=== PATIENT | male | born 1965 | race African-American/Black ===

== ENCOUNTER 2021-10-19 13:04 | Inpatient (IN) | payer OTHER ==
[2021-10-19] MEDS ORDERED: ACETAMINOPHEN 325 MG TABLET (FP) PO PRN ×2 (15:18)
[2021-10-19] MEDS ORDERED: BISMUTH SUBSALICYLATE 524 MG/30 ML PO PRN (15:18)
[2021-10-19] MEDS ORDERED: NICOTINE 10 MG CARTRIDGE (INHALER) IH PRN (15:18)
[2021-10-19] MEDS ORDERED: MAGNESIUM CITRATE 300 ML BOTTLE PO PRN (15:18)
[2021-10-19] MEDS ORDERED: IBUPROFEN 400 MG TABLET (FP) PO PRN (15:18)
[2021-10-19] MEDS ORDERED: METHOCARBAMOL 500 MG TABLET PO PRN (15:18)
[2021-10-19] MEDS ORDERED: LORazepam 1 MG TABLET PO PRN (15:18)
[2021-10-19] MEDS ORDERED: ONDANSETRON *ODT* 4 MG TABLET SL PRN (15:18)
[2021-10-19] MEDS ORDERED: MAG HYDROX/AL HYDROX/SIMETH 30 ML UNIT-DOSE CUP PO PRN (15:18)
[2021-10-19] MEDS ORDERED: MENTHOL/PHENOL 1 EACH UD MM PRN (15:18)
[2021-10-19] MEDS ORDERED: LOPERAMIDE HCL 2 MG CAPSULE PO PRN (15:18)
[2021-10-19] MEDS ORDERED: MAGNESIUM HYDROX 2400MG/30ML ORAL SUSPENSION 30 ML CUP PO PRN (15:18)
[2021-10-19 16:58] VITALS: BMI 16.9
[2021-10-19] MEDS: hydrOXYzine PAMOATE 25 MG CAPSULE (FP) PO SCH ×2 (20:41→22:22)
[2021-10-19] MEDS: PRENATAL VITAMINS W/ FOLIC ACID TABLET (FP) PO SCH (20:41)
[2021-10-19] MEDS ORDERED: PHENobarbital 30 MG TABLET PO SCH (22:00)
[2021-10-19] MEDS: THIAMINE HCL 100 MG TABLET (FP) PO SCH (22:22)
[2021-10-19] MEDS: MELATONIN 5 MG TABLETS PO SCH (22:22)
[2021-10-19] MEDS: LORazepam 2 MG TABLET PO SCH (22:22)
[2021-10-20] MEDS: LORazepam 2 MG TABLET PO SCH ×4 (05:28→22:01)
[2021-10-20] MEDS: hydrOXYzine PAMOATE 25 MG CAPSULE (FP) PO SCH ×5 (05:28→22:02)
[2021-10-20] MEDS: PRENATAL VITAMINS W/ FOLIC ACID TABLET (FP) PO SCH (10:16)
[2021-10-20 11:13] LABS: HEMATOCRIT 35.1 % (35.4-49); HEMOGLOBIN 11.7 GM/dL (11.7-16.9); MCH 32.4 pg (25.7-33.7); MCHC 33.5 g/dl (32.0-35.9); MEAN PLT VOLUME 7.9 fl (7.5-11.1); PLATELET COUNT 153 10^3/uL (134-434); RBC 3.62 M/mm3 (4.00-5.60); RDW 15.3 % (11.9-15.9); WHITE BLOOD COUNT 5.1 K/mm3 (4.0-10.0)
[2021-10-20 11:25] LABS: ALBUMIN 3.5 g/dl (3.4-5.0); BLOOD UREA NITROGEN 13.3 mg/dL (7-18); CALCIUM 9.3 mg/dL (8.5-10.1)
[2021-10-20 11:28] LABS: CREATININE 0.6 mg/dL (0.55-1.3)
[2021-10-20 11:29] LABS: BILIRUBIN,TOTAL 0.9 mg/dL (0.2-1)
[2021-10-20] MEDS: MELATONIN 5 MG TABLETS PO SCH (22:01)
[2021-10-20] MEDS: THIAMINE HCL 100 MG TABLET (FP) PO SCH (22:01)
[2021-10-21] MEDS: hydrOXYzine PAMOATE 25 MG CAPSULE (FP) PO SCH ×5 (05:13→22:13)
[2021-10-21] MEDS: LORazepam 1 MG TABLET PO SCH ×4 (05:13→22:12)
[2021-10-21] MEDS: PRENATAL VITAMINS W/ FOLIC ACID TABLET (FP) PO SCH (10:25)
[2021-10-21 10:51] LABS: INR 1.01 (0.83-1.09); PROTHROMBIN TIME (PATIENT) 11.6 SEC (9.7-13.0)
[2021-10-21 10:51] LABS: ALBUMIN 3.2 g/dl (3.4-5.0); CALCIUM 8.5 mg/dL (8.5-10.1)
[2021-10-21 10:56] LABS: BILIRUBIN,TOTAL 0.8 mg/dL (0.2-1)
[2021-10-21 10:58] LABS: CREATININE 0.6 mg/dL (0.55-1.3); TOT PROT 5.5 g/dl (6.4-8.2)
[2021-10-21] MEDS: LACTULOSE 20 GM/30 ML UDC (FOR ORAL USE ONLY) PO SCH ×3 (14:25→22:12)
[2021-10-21] MEDS: THIAMINE HCL 100 MG TABLET (FP) PO SCH (22:12)
[2021-10-21] MEDS: MELATONIN 5 MG TABLETS PO SCH (22:12)
[2021-10-22] MEDS ORDERED: LORazepam 0.5 MG TABLET PO PRN
[2021-10-22] MEDS: hydrOXYzine PAMOATE 25 MG CAPSULE (FP) PO SCH ×5 (05:56→22:08)
[2021-10-22] MEDS: LORazepam 0.5 MG TABLET PO SCH ×4 (05:56→22:07)
[2021-10-22] MEDS: PRENATAL VITAMINS W/ FOLIC ACID TABLET (FP) PO SCH (10:21)
[2021-10-22] MEDS: LACTULOSE 20 GM/30 ML UDC (FOR ORAL USE ONLY) PO SCH ×4 (10:22→22:07)
[2021-10-22] MEDS: PHENobarbital 30 MG TABLET PO SCH (22:07)
[2021-10-22] MEDS: MELATONIN 5 MG TABLETS PO SCH (22:08)
[2021-10-22] MEDS: THIAMINE HCL 100 MG TABLET (FP) PO SCH (22:08)
[2021-10-23] MEDS ORDERED: LORazepam 0.5 MG TABLET PO ONE (05:00)
[2021-10-23] MEDS: hydrOXYzine PAMOATE 25 MG CAPSULE (FP) PO SCH ×2 (05:34→10:24)
[2021-10-23 09:14] VITALS: BP 91/66; PULSE 102; TEMP 96.9
[2021-10-23] MEDS: PHENobarbital 30 MG TABLET PO SCH (10:24)
[2021-10-23] MEDS: LACTULOSE 20 GM/30 ML UDC (FOR ORAL USE ONLY) PO SCH (10:24)
[2021-10-23] MEDS: PRENATAL VITAMINS W/ FOLIC ACID TABLET (FP) PO SCH (10:25)
== END 2021-10-23 11:40 | disposition home or self-care (01) | DRG 775 ==
LOC: EDBD 13:04 → YASAS 13:04 → Y3N 16:41
PROVIDERS: ADMIT Allergy & Immunology; ATTEND Allergy & Immunology
PROC: HZ2ZZZZ Detoxification Services for Substance Abuse Treatment (ICD-10-PCS; principal; 2021-10-19)
DX: F10.230 Alcohol dependence with withdrawal, uncomplicated (principal); F17.210 Nicotine dependence, cigarettes, uncomplicated; R62.7 Adult failure to thrive; Z68.1 Body mass index [BMI] 19.9 or less, adult; G40.909 Epilepsy, unspecified, not intractable, without status epilepticus; R63.4 Abnormal weight loss; R79.89 Other specified abnormal findings of blood chemistry; R94.5 Abnormal results of liver function studies; Z96.652 Presence of left artificial knee joint; Z96.642 Presence of left artificial hip joint; Z59.00 Homelessness unspecified
CPT/HCPCS: 36415; 80053; 80184; 82140; 85027; 85610; 86780; 93005; 93010; C9803-CS; U0003; U0005